=== PATIENT | female | born 1990 | race Two or more races ===

== ENCOUNTER 2021-07-20 13:08 | Observation (INO) | payer SELFPAY ==
[2021-07-20 13:19] VITALS: BMI 22.1
[2021-07-20] MEDS ORDERED: ACETAMINOPHEN 325 MG TABLET (FP) PO ONE (13:54)
[2021-07-20 15:28] LABS: URINE APPEARANCE CLEAR; URINE BILIRUBIN NEGATIVE (NEGATIVE); URINE COLOR YELLOW; URINE GLUCOSE (UA) NEGATIVE (NEGATIVE); URINE KETONE 1+ (NEGATIVE); URINE LEUK ESTERASE NEGATIVE (NEGATIVE); URINE NITRITE NEGATIVE (NEGATIVE); URINE PROTEIN NEGATIVE (NEGATIVE); URINE UROBILINOGEN 0.2 mg/dL (0.2-1.0)
[2021-07-20 15:38] LABS: ALBUMIN 4.3 g/dl (3.4-5.0); BLOOD UREA NITROGEN 10.6 mg/dL (7-18); CALCIUM 9.2 mg/dL (8.5-10.1)
[2021-07-20 15:41] LABS: BASO % 0.8 % (0-2.0); CREATININE 0.5 mg/dL (0.55-1.3); EOS % 0.3 % (0-4.5); HEMATOCRIT 38.6 % (32.4-45.2); HEMOGLOBIN 13.4 GM/dL (10.7-15.3); LYMPH % 27.8 % (8-40); MCH 32.9 pg (25.7-33.7); MCHC 34.6 g/dl (32.0-36.0); MEAN CELL VOLUME 95.1 fl (80-96); MEAN PLT VOLUME 8.9 fl (7.5-11.1); MONO % 4.6 % (3.8-10.2); NEUT % 66.5 % (42.8-82.8); PLATELET COUNT 232 10^3/uL (134-434); RBC 4.06 M/mm3 (3.60-5.2); RDW 13.1 % (11.6-15.6); WHITE BLOOD COUNT 4.4 K/mm3 (4.0-10.0)
[2021-07-20 15:41] LABS: COCAINE, UR NEGATIVE (NEGATIVE)
[2021-07-20 15:42] LABS: METHADONE, UR NEGATIVE (NEGATIVE); OPIATES, URI NEGATIVE (NEGATIVE); PHENCYCLIDINE,URINE NEGATIVE (NEGATIVE); URINE AMPHETAMINES NEGATIVE (NEGATIVE); URINE BARBITURATES NEGATIVE (NEGATIVE); URINE BENZODIAZEPINES NEGATIVE (NEGATIVE)
[2021-07-20 15:43] LABS: BILIRUBIN,TOTAL 0.6 mg/dL (0.2-1)
[2021-07-20] MEDS ORDERED: ACETAMINOPHEN 325 MG TABLET (FP) PO PRN (23:40)
[2021-07-21] MEDS ORDERED: ENOXAPARIN NA (PORCINE) 40 MG/0.4 ML DISP.SYRIN SQ SCH (10:00)
[2021-07-21 10:08] LABS: SARS-CoV-2 NAA Not Detected (Not Detected)
[2021-07-21 18:39] VITALS: BP 104/63; PULSE 76; TEMP 98
== END 2021-07-21 18:37 | disposition home or self-care (01) ==
LOC: JER 13:08 → JERBED 19:17 → J4S 23:20
PROVIDERS: ADMIT Hospitalist; ATTEND Internal Medicine
DX: R45.851 Suicidal ideations (principal); F32.9 Major depressive disorder, single episode, unspecified; R45.84 Anhedonia; E28.2 Polycystic ovarian syndrome; R63.0 Anorexia; G47.9 Sleep disorder, unspecified; Z86.16 Personal history of COVID-19
CPT/HCPCS: 36415; 70450-TC; 80053; 80307; 81003; 84703; 85025; 87086; 93005; 93010; 99285-25; C9803; G0378; U0003; U0005